=== PATIENT | female | born 1990 | race Caucasian/White ===

== ENCOUNTER 2017-01-13 09:00 | Emergency (ER) | payer MEDICAID ==
[~2017-01-13] VITALS: Ht 157.5 cm; Wt 52.5 kg
[2017-01-13 09:04] VITALS: Ht 157.5 cm; Wt 52.5 kg
[2017-01-13] MEDS ORDERED: ONDANSETRON (ODT) 4 MG TAB ODT STA (09:22)
[2017-01-13 09:49] LABS: ADD UMIC YES; UR ASCORBIC ACID 40 mg/dL (NEGATIVE); UR BACTERIA FEW /HPF (NONE SEEN); UR BILIRUBIN (Dip) NEGATIVE (NEGATIVE); UR BLOOD (Dip) NEGATIVE (NEGATIVE); UR CLARITY SLIGHTLY CLOUDY (CLEAR); UR COLOR YELLOW (YELLOW); UR GLUCOSE (Dip) NEGATIVE (NEGATIVE); UR KETONES (Dip) NEGATIVE (NEGATIVE); UR LEUKOCYTE ESTERASE (Dip) 1+ Leu/ul (NEGATIVE); UR MUCUS FEW /HPF (NONE SEEN); UR NITRITE (Dip) NEGATIVE (NEGATIVE); UR RBC 2 /HPF (0-5); UR SQUAMOUS EPITHELIAL CELL MODERATE /HPF (FEW); UR TOTAL PROTEIN (Dip) NEGATIVE (NEGATIVE); UR UROBILINOGEN (Dip) NEGATIVE (NEGATIVE)
[2017-01-13] MEDS ORDERED: PHEN-538 PO (09:52)
[2017-01-13] MEDS ORDERED: NITR-58 PO (09:52)
[2017-01-13] MEDS ORDERED: IBUP-1542 PO (09:54)
--- NOTE | 2017-01-13 10:28 | RADRPT ---
PROCEDURE: US upper extremity Venous. CLINICAL INDICATION: Left arm pain TECHNIQUE: Multiple sonographic images of the left upper extremity venous system was obtained util izing grayscale, color-flow, compressive sonography and doppler imaging with augmentation. The imag es were reviewed on a PACS workstation. COMPARISON: None. FINDINGS: There is normal compressibility and flow within the left internal jugular vein, subclavian vein, axi llary vein, brachial, basilic, cephalic, radial and ulnar veins. RPTAT: AA IMPRESSION: No sonographic evidence for venous thrombosis. .Michoacano Britton MD, Date Time Electronically viewed and signed by .Michoacano rBitton MD, on 01/13/2017 10:28 .S/
--- NOTE | 2017-01-13 11:25 | ERD ---
ER Documentation Chief Complaint Date/Time DATE: 01/13/17 TIME: 11:23 Chief Complaint N/V and left ear pain x 3 days HPI This is a 26-year-old female presenting to the emergency department with multiple complaints. Patient complains of nausea with one episode of vomiting since last night. She denies any abdominal pain, dysuria, diarrhea, constipation. Patient second complaint is that her left ear has been hurting for the past 3 days. She rates it mild in severity. She denies any fevers. Denies sore throat, cough. Patient states that her left eye has been irritated and red for the past 3 years she has never been evaluated by the physician. She denies any vision changes. ROS All systems reviewed and are negative except as per history of present illness. Medications Home Meds Active Scripts Ibuprofen* (Ibuprofen*) 600 Mg Tablet, 600 MG PO Q6H, #30 TAB Prov:HERMANN SARABIA PA-C 01/13/17 Phenazopyridine Hcl* (Pyridium*) 200 Mg Tab, 200 MG PO TID Y for URINARY PAIN, # 6 TAB Prov:HERMANN SARABIA PA-C 01/13/17 Nitrofurantoin Monohyd Macrocr* (Macrobid*) 100 Mg Capsr, 100 MG PO BID for 7 Days, CAP Prov:HERMANN SARABIA PA-C 01/13/17 Allergies Allergies: Coded Allergies: No Known Allergy (Unverified , 01/13/17) PMhx/Soc History of Surgery: Yes (APPENDECTOMY, HERNIA REPAIR) Anesthesia Reaction: No Hx Neurological Disorder: No Hx Respiratory Disorders: No Hx Cardiac Disorders: No Hx Psychiatric Problems: No Hx Miscellaneous Medical Probl: No Hx Alcohol Use: Yes Hx Substance Use: No Hx Tobacco Use: No Physical Exam Vitals Vital Signs Date Time Temp Pulse Resp B/P Pulse Ox O2 Delivery O2 Flow Rate FiO2 01/13/17 09:04 98.7 78 16 119/79 100 Physical Exam GENERAL: well-developed/well-nourished, in no apparent distress, non-toxic appearing HENT: NC/AT, moist mucous membranes EYES: Left eye pterygium NECK: Supple, no lymphadenopathy PULM: CTA bilaterally, no rales, rhonchi, or wheezing heard CV: Normal S1S2, RRR, good capillary refill GI: Soft, non-distended, nontender Normal bowel sounds, no masses or organomegaly felt on exam No gross peritonitis, no bruits Negative Rovsing, negative Mcmullen, negative McBurney's point, Negative CVAT BACK: No masses EXT: No clubbing, cyanosis, or edema NEURO: Alert and Orientated SKIN: Intact, normal turgor PSYCH: Normal mood and mentation Results 24 hrs Laboratory Tests Test 01/13/17 09:27 Urine Color YELLOW Urine Clarity SLIGHTLY CLOUDY Urine pH 5.0 Urine Specific [place] 1.030 Urine Ketones NEGATIVEmg/dL Urine Nitrite NEGATIVEmg/dL Urine Bilirubin NEGATIVEmg/dL Urine Urobilinogen NEGATIVEmg/dL Urine Leukocyte Esterase 1+Aliya/ul Urine Microscopic RBC 2/HPF Urine Microscopic WBC 7/HPF Urine Squamous Epithelial Cells MODERATE/HPF Urine Bacteria FEW/HPF Urine Mucus FEW/HPF Urine Hemoglobin NEGATIVEmg/dL Urine Glucose NEGATIVEmg/dL Urine Total Protein NEGATIVEmg/dl Current Medications Medications (Trade) Dose Ordered Sig/Chang Route PRN Reason Start Time Stop Time Status Last Admin Dose Admin Ondansetron HCl (Zofran Odt) 4 mg ONCE STAT ODT 01/13/17 09:22 01/13/17 09:25 DC 01/13/17 09:28 Procedures/MDM This is a 26-year-old female with multiple complaints. Patient complains of left eye irritation the past 3 years which is most consistent with pterygium through examination. She complains of nausea with one episode of vomiting which is likely due to her a urinary tract infection or urinalysis. She did not have any evidence of abdominal pain, pyelonephritis or nephrolithiasis. Urine test was negative. Patient also complains of left ear pain, on examination there was no evidence of otitis media, otitis externa, mastoiditis or cerumen impaction. No evidence of ruptured TM. Patient is stable to be discharged home to follow-up with primary care physician. I have discussed with her to return to the ER for any worsening symptoms. Prescription for ibuprofen, Macrobid and Pyridium was given. She understands and agrees with this plan Departure Diagnosis: Primary Impression: UTI (urinary tract infection) Additional Impressions: Pterygium Left arm pain Condition: Stable Patient Instructions: Understanding Urinary Tract Infections (UTIs), Pterygium [facility]: [facility] Usolga avilaho un examen mdico de control que le indica que no est en abel condicin que requiera tratamiento urgente en el Departamento de Emergencia. Un estudio ms profundo y el tratamiento de farris condicin pueden esperar sin ningn riesgo hasta que usted sea atendida/o en el consultorio de farris mdico o abel cl baldo. Es responsabilidad suya arreglar abel sana para el seguimiento del paul. MANEJO DE CONDICIONES NO URGENTES EN EL FUTURO 1) Si usted tiene un mdico de atencin primaria: Usted debera llamar a farris mdico de atencin primaria antes de venir al departamento de emergencia. Despus de las horas de consultorio, farris doctor o farris asociado/a est disponible por telfono. El mdico o enfermero de bart en el servicio telefnico puede asesorarle por evelina medio para atender el problema, o paul contrario se puede programar abel sana. 2) Si usted no tiene un mdico de atencin primaria: Llame al mdico o clnica de referencia que aparece abajo kai las horas de consultorio para hacer abel sana para que le vean. CLINICAS: [facility] [phone] [facility] [phone] [facility] [phone] [facility]. [facility] [phone] [facility]. [place] [id number] [phone] [facility]. [phone] [address] [facility] [address] [facility] Hours: Mon - Fri 9:00 AM - 5:00 PM Additional Instructions: Visite a farris mdico maana para un EXAMEN.Regrese a estas instalaciones si no se mejora rico esperbamos o rico le dijimos. [place] toda la medicina le y rico se le indic. Regrese a estas instalaciones si no se mejora rico esperbamos o rico le dijimos. HERMANN SARABIA PA-C Jan 13, 2017 11:25
== END 2017-01-13 11:09 | disposition home or self-care (01) ==
LOC: FTE 09:00
DX: N39.0 Urinary tract infection, site not specified (principal); H11.002 Unspecified pterygium of left eye; M79.602 Pain in left arm
CPT/HCPCS: 81001; 93971; Z7502; Z7610

== ENCOUNTER 2018-01-02 19:06 | Emergency (ER) | END 2018-01-02 22:34 | disposition home or self-care (01) ==

== ENCOUNTER 2018-10-30 22:25 | Inpatient (IN) | payer MEDICAID ==
[~2018-10-30] VITALS: Ht 170.2 cm; Wt 66.8 kg
[~2018-10-30 22:25] MED LIST: CEPH-443 PO; IBUP-1542 PO; NITR-58 PO; PHEN-538 PO
[2018-10-30] MEDS ORDERED: METHYLERGONOVINE 0.2 MG INJ IM PRN (22:30)
[2018-10-30] MEDS ORDERED: OXYTOCIN 30 UNITS/LR 500 ML IV SCH ×2 (22:30)
[2018-10-30] MEDS ORDERED: LIDOCAINE 1% (MPF) 30 ML INJ INJ PRN (22:30)
[2018-10-30] MEDS ORDERED: MINERAL OIL LIGHT 10 ML VIAL TOP PRN (22:30)
[2018-10-30] MEDS ORDERED: IBUPROFEN 600 MG TAB PO PRN (22:30)
[2018-10-30] MEDS ORDERED: BUTORPHANOL 2 MG INJ IV PRN (22:30)
[2018-10-30] MEDS ORDERED: OXYTOCIN 30 UNITS/LR 500 ML IV PRN (22:30)
[2018-10-30] MEDS ORDERED: CARBOPROST 250 MCG INJ IM PRN (22:30)
[2018-10-30] MEDS ORDERED: MISOPROSTOL 200 MCG TAB PR PRN (22:30)
[2018-10-30 22:33] VITALS: Ht 170.2 cm; Wt 66.8 kg
[2018-10-30] MEDS: LACTATED RINGER'S 1,000 ML IV SCH ×2 (23:02→23:53)
[2018-10-31] VITALS (7 sets, daily range): BP systolic 97–139; BP diastolic 62–87; PULSE 57–83; RESP 17–18
--- NOTE | 2018-10-31 00:58 | LDN ---
Date/Time of Note Date/Time of Note DATE: 10/31/18 TIME: 00:56 Delivery Summary of normal male Weeks of Gestation 40w Placenta Delivered: Spontaneously, Intact & Complete Meconium: none Episiotomy: No Perineal laceration: 0 Anesthesia type: None Estimated blood loss: 200 Sponge & Needle done & correct: Yes All needle counts correct: Yes Any foreign bodies felt in the: No Delivery Information Sex Infant Sex: male Apgars 1 Minute: 8 5 Minute: 9 Suctioning Nose & mouth suctioned at nataliia: Yes Delee suction performed: Yes Umbilical Cord Umbilical cord with: 3 Vessels Cord presentations: no nuchal cord Cord Blood was obtained: Yes Mother & Baby Disposition Disposition Mom & Baby to Maternity; Good: Yes Mom transferred to: Other Baby to NICU: No () SHANTELLE QUIROGA MD October 31, 2018 00:58
--- NOTE | 2018-10-31 01:30 | HP ---
Date/Time of Note Date/Time of Note DATE: 10/31/18 TIME: 01:25 OB - History Hx of Present Free Text/Dictation 27y.o at 40w2d in active labor with intact membrane. Initial VE /-2 with UC's q2-3min apart EFM CAT I tracing Her initial visit was at 8weeks , no apparent problem during course. GBS status neg admitted for expectant management. Chief Complaint: UC's Estimated Due Date: October 29, 2018 : 2 Para: 1 Spontaneous : 0 Therapeutic : 0 Care: Good Care Ultrasounds: Normal mid trimester US Obstetrical Complications: None Medical Complications: None Past Family/Social History * Past Medical, Surgical, Family and Obstetric Histories reviewed from chart. Blood Type: O+ Rubella: immune RPR/VDRL: Negative GBS Status: Negative HBsAG: Negative OB Admission Exam Vital Signs Vital Signs Vital Signs Date Temp Pulse Resp B/P (MAP) Pulse Ox O2 O2 Flow FiO2 Time Delivery Rate 10/31/18 99.3 83 18 139/85 Room Air 01:13 (103) Physical Exam HEENT: WNL Heart: Rhythm Normal Lungs: Clear, Equal Abdomen: WNL Extremities: Normal Reflexes: Normal Cervical Dilatation: 4cm Effacement: Other (80%) Station: -2 Membranes: Intact Amniotic Fluid: Unevaluable Heart Rate: 130's Accelerations: Accelerations Present Decelerations: No Decelerations Varibility: Moderate Contractions on Admission: < 5 Minutes Apart Intensity: Moderate Last 72 hours Lab Results CBC & BMP 10/30/18 22:38 OB Assessment/Plan Reason for admission: active labor Other Assessment: IUP 40w2d Plan: Expectant Management SHANTELLE QUIROGA MD October 31, 2018 01:30
[2018-10-31] MEDS ORDERED: OXYCODONE/ASPIRIN (4.88/325) TAB PO PRN ×2 (02:00)
[2018-10-31] MEDS ORDERED: MISOPROSTOL 200 MCG TAB PR PRN (02:00)
[2018-10-31] MEDS ORDERED: METHYLERGONOVINE 0.2 MG INJ IM PRN (02:00)
[2018-10-31] MEDS ORDERED: BENZOCAINE 20% 56 ML SPRAY TOP PRN (02:00)
[2018-10-31] MEDS ORDERED: WITCH HAZEL/GLYCERIN PAD PR PRN (02:00)
[2018-10-31] MEDS ORDERED: ZOLPIDEM 5 MG TAB PO PRN (02:00)
[2018-10-31] MEDS ORDERED: OXYTOCIN 30 UNITS/LR 500 ML IV PRN (02:00)
[2018-10-31] MEDS ORDERED: CARBOPROST 250 MCG INJ IM PRN (02:00)
[2018-10-31] MEDS: IBUPROFEN 600 MG TAB PO SCH ×4 (05:50→23:16)
--- NOTE | 2018-10-31 05:50 | TRIAGE ---
OB Triage Datetime Report Generated by CPN: 10/31/2018 05:50 Datetime: 10/31/2018 01:31 Stage of : Recovery Pain Assessment Pain Scale: 0 Pain Presence: None/Denies Pain Type: N/A Pain Relief Measures: Comfort Measures Datetime: 10/31/2018 01:16 Stage of : Recovery Pain Assessment Pain Scale: 0 Pain Presence: None/Denies Pain Type: N/A Pain Relief Measures: Comfort Measures Datetime: 10/31/2018 01:01 Stage of : Recovery Pain Assessment Pain Scale: 0 Pain Presence: None/Denies Pain Type: N/A Pain Relief Measures: Comfort Measures Datetime: 10/31/2018 00:46 Stage of : Recovery Pain Assessment Pain Scale: 3 Pain Presence: Intermittent Pain Type: Contraction; Ache Pain Location: Abdomen; Perineum Pain Relief Measures: Pain Medication Given; Comfort Measures Datetime: 10/31/2018 00:31 Stage of : Recovery Temperature Route: Axillary Pain Assessment Pain Scale: 7 Pain Presence: Intermittent Pain Type: Contraction; Ache Pain Location: Abdomen; Perineum Pain Relief Measures: Comfort Measures Datetime: 10/31/2018 00:20 Stage of : Labor Labor Evaluation Frequency: 2-3 Monitor Mode: External Duration (sec)2399: 50-60 Pattern: Normal: <= 5 Contractions in 10 Minutes Resting Tone Morning Sun: Relaxed Heart Rate FHR Baseline Rate: 130 Monitor Mode: External US Variability: Moderate 6-25 bpm Accelerations: 15X15 Decelerations: None Category: Category I Pain Assessment Pain Scale: 10 Pain Presence: Intermittent Pain Type: Contraction; Pressure Pain Location: Abdomen; Back; Perineum Pain Relief Measures: Comfort Measures Datetime: 10/31/2018 00:17 Vaginal Exam Dilatation (cms): 10.0 Effacement (%): 100 Membranes Rupture Method: Artificial Amniotic Fluid Amount: Moderate Datetime: 10/31/2018 00:12 Stage of : Labor Datetime: 10/31/2018 00:04 Vaginal Exam Dilatation (cms): 9.5 Effacement (%): 100 Station: -1 Exam By: GKashman, RN Membrane Status: Bulging Datetime: 10/30/2018 23:50 Stage of : Labor Labor Evaluation Frequency: 2-3 Monitor Mode: External Duration (sec)2399: 60-80 Pattern: Normal: <= 5 Contractions in 10 Minutes Resting Tone Morning Sun: Relaxed Heart Rate FHR Baseline Rate: 130 Monitor Mode: External US Variability: Moderate 6-25 bpm Accelerations: 15X15 Decelerations: Early; Late Category: Category II Pain Assessment Pain Scale: 10 Pain Presence: Intermittent Pain Type: Contraction Pain Location: Abdomen; Back; Perineum Pain Relief Measures: Comfort Measures Datetime: 10/30/2018 23:49 Pain Assessment Pain Scale: 10 Pain Presence: Intermittent Pain Type: Contraction; Pressure Pain Location: Abdomen; Back; Perineum Pain Relief Measures: Comfort Measures Vaginal Exam Dilatation (cms): 8.5 Effacement (%): 100 Station: -1 Exam By: [facility], RN Datetime: 10/30/2018 23:17 Stage of : Labor Labor Evaluation Frequency: 1.5-2.5 Monitor Mode: External Duration (sec)2399: 60-80 Pattern: Normal: <= 5 Contractions in 10 Minutes Resting Tone Morning Sun: Relaxed Heart Rate FHR Baseline Rate: 130 Monitor Mode: External US Variability: Moderate 6-25 bpm Accelerations: 15X15 Decelerations: None Category: Category I Pain Assessment Pain Scale: 8 Pain Presence: Intermittent Pain Type: Contraction Pain Location: Abdomen; Back; Perineum Pain Relief Measures: Comfort Measures Datetime: 10/30/2018 23:16 Time of Arrival: 10/30/2018 22:55 EGA: 40.1 Arrived By: Stretcher Arrived From: Home Datetime: 10/30/2018 23:15 Assessment Type: Admission Assessment Maternal Assessment Level of Consciousness: Fully Conscious DTR's/Clonus: DTRs 2+; No Clonus Headache: Denies Blurred Vision: No Respiratory Effort: Unlabored; Regular Rhythm; Equal Expansion Breath Sounds, Left: Clear and Equal Breath Sounds, Right: Clear and Equal Nausea/Vomiting: Denies RUQ Epigastric Pain: Denies Lower Extremities Edema: None Degree: None Upper Extremities Edema: None Degree: None Facial Edema: None Fall Risk Assessment History of Falling: (0) No Secondary Diagnosis: (0) No Ambulatory Aid: (0) Bedrest/Nurse Assist IV Therapy: (20) Yes Gait: (0) Normal/Bedrest/Immobile Mental Status: (0) Oriented to Own Ability Fall Score: 20 Fall Risk Score Definition: No Risk: No action required Datetime: 10/30/2018 23:08 Stage of : Labor Vaginal Exam Dilatation (cms): 6.0 Effacement (%): 100 Station: -1 Exam By: JAGJIT RN Datetime: 10/30/2018 22:27 Vaginal Exam Dilatation (cms): 4.0 Effacement (%): 80 Station: -2 Membrane Status: Intact Datetime: 10/30/2018 22:10 Stage of : OB Triage Maternal Assessment Level of Consciousness: Fully Conscious DTR's/Clonus: DTRs 2+; No Clonus Headache: Denies Blurred Vision: No Respiratory Effort: Unlabored; Regular Rhythm; Equal Expansion Breath Sounds, Left: Clear and Equal Breath Sounds, Right: Clear and Equal Nausea/Vomiting: Denies RUQ Epigastric Pain: Denies Lower Extremities Edema: None Degree: None Upper Extremities Edema: None Degree: None Facial Edema: None Temperature Route: Oral Fall Risk Assessment History of Falling: (0) No Secondary Diagnosis: (0) No Ambulatory Aid: (0) Bedrest/Nurse Assist IV Therapy: (0) No Gait: (0) Normal/Bedrest/Immobile Mental Status: (0) Oriented to Own Ability Fall Score: 0 Fall Risk Score Definition: No Risk: No action required Pain Assessment Pain Scale: 7 Pain Presence: Intermittent Pain Type: Contraction Pain Location: Abdomen Datetime: 10/30/2018 22:09 Time of Arrival: 10/31/2018 22:09 EGA: 40.2 Arrived By: Wheelchair Arrived From: Home Chief Complaint: CONTRACTIONS Movement: Present Contractions: Regular Time Contractions Began: 10/30/2018 17:00 Contractions: 2-3.4 Rupture of Membranes: Denies Vaginal Bleeding: Normal Show Vaginal Discharge: Denies Recent Sexual Intercouse: Denies Abdominal Trauma: Not Applicable Patient Complaints: Contractions Time Provider Notified: 10/30/2018 22:25 Provider Notified: DR. PINTO Initial Plan: EFM, SVE, CALL OB Datetime: 09/29/2018 13:35 Membranes Ruptured Date/Time: 10/31/2018 00:17 Amniotic Fluid Color: Clear Amniotic Fluid Odor: None Presentation 'A': Cephalic
[2018-10-31] MEDS: SENNA/DOCUSATE NA (8.6MG/50MG) TAB PO SCH ×2 (09:18→21:30)
[2018-11-01 04:00] VITALS: BP 115/75; PULSE 67; RESP 17
[2018-11-01] MEDS: IBUPROFEN 600 MG TAB PO SCH ×3 (05:13→17:51)
[2018-11-01 07:40] VITALS: BP 112/69; PULSE 77; RESP 17
[2018-11-01] MEDS: LANOLIN HPA 1 PKT TOP PRN ×2 (08:59→18:18)
[2018-11-01] MEDS: SENNA/DOCUSATE NA (8.6MG/50MG) TAB PO SCH (08:59)
[2018-11-01 15:30] VITALS: BP 113/73; PULSE 95; RESP 18
--- NOTE | 2018-11-01 16:52 | DS ---
Date/Time of Note Date/Time of Note Home today or next day DATE: 11/01/18 TIME: 16:51 Obstetrical Discharge Record Final Diagnosis Final Diagnosis: Term delivered Other Final Diagnosis Status post vaginal delivery Vaginal Delivery Obstetrical Delivery: Spontaneous Condition on Discharge Physical Assessment Last Vitals: See nurse's notes Voiding: Yes Bowel Movement: Yes Breast: Soft, non-tender, Filling Fundus: Firm Abdomen and Incision: Abdomen is soft with firm fundus Episiotomy: Perineum is clean Calf Tenderness: No Patient Condition: Good NOHEMI LAWSON MD November 01, 2018 16:52
--- NOTE | 2018-11-01 16:53 | PD.PPDC ---
ASSOCIATE TECHNICIAN Discharge Instruction Provider Information Physician Information 28-year-old female had vaginal delivery Diagnosis [id number] Final Diagnosis: Tcmbs4f Status post vaginal delivery Condition [id number] Patient Condition: Hezpq2n Good Diet Pclab7Er Diet: Zftfd6j Resume Regular Diet Activity/Restrictions Swrqm7Np Activity: Ymnns6c Normal Activity May Shower Ululk2Nk Restrictions: Njmcx5k Nothing in the Vagina [id number] Return to Work or School: [id number] Dec 19, 2018 Follow-up Follow-up with Physician: 2, 4, Week/Weeks (In clinic) Return to clinic for [id number] OB Instructions: Jqkoc8a Breast Tenderness Depression Comment: Pelvic rest for 6 weeks NOHEMI LAWSON MD November 01, 2018 16:53
[2018-11-01] MEDS ORDERED: IBUP-1542 PO (16:54)
[2018-11-02] MEDS ORDERED: DIPHTH/TET/ACEL PERTUSS (ADULT) 0.5 ML VIAL IM* ONE (09:00)
--- NOTE | 2018-11-02 19:37 | DELSUM ---
Delivery Summary A-C Datetime Report Generated by CPN: 11/02/2018 19:37 DELIVERY PERSONNEL Graphics Artist: Kashman, Peggy MATERNAL INFORMATION Delivery Anesthesia: None Medications in Delivery: Pitocin 30 units in LR Delivery QBL (ml): 226 Placenta Cultured: No Maternal Complications: None LABOR SUMMARY EDC: 10/29/2018 00:00 No. Babies in Womb: 1 Attempted: No Labor Anesthesia: None LABOR INFORMATION Reason for Induction: Not Applicable Onset of Labor: 10/30/2018 16:00 Complete Dilatation: 10/31/2018 00:17 Oxytocin: N/A Group B Beta Strep: Negative Antibiotics # of Doses: 0 Steroids Given: None Reason Steroids Not Administered: Not Applicable MEMBRANES Membranes Rupture Method: Artificial Rupture of Membranes: 10/31/2018 00:17 Length of Rupture (hr): 0.05 Amniotic Fluid Color: Clear Amniotic Fluid Amount: Moderate Amniotic Fluid Odor: None STAGES OF LABOR Stage 1 hr: 8 Stage 1 min: 17 Stage 2 hr: 0 Stage 2 min: 3 Stage 3 hr: 0 Stage 3 min: -3 Total Time in Labor hr: 8 Total Time in Labor min: 17 VAGINAL DELIVERY Episiotomy: None Laceration Extension: N/A Laceration Type: None Laceration Repair: No Initial Vag Sponge Count: 10 Final Vag Sponge Count: 10 Initial Vag Sharps Count: 1 Final Vag Sharps Count: 1 Sponge Count Correct: Yes Sharps Count Correct: Yes BABY A INFORMATION Delivery Date/Time: 10/31/2018 00:20 Method of Delivery: Vaginal Born in Route : No : N/A Forceps: N/A Vacuum Extraction: N/A Shoulder Dystocia : No SHOULDER DYSTOCIA BABY A Delivery Date/Time: 10/31/2018 00:20 PRESENTATION/POSITION BABY A Presentation: Cephalic Cephalic Presentation: Vertex Breech Presentation: N/A PLACENTA INFORMATION BABY A Placenta Delivery Time : 10/31/2018 00:17 Placenta Method of Delivery: Expressed Placenta Status: Delivered SCORES BABY A Heart Rate 1 min: >100 bpm Resp Effort 1 min: Good Cry Reflex Irritability 1 min: Cough/Sneeze/Pulls Away Muscle Tone 1 min: Active Motion Color 1 min: Body [place], Extremit Blue Resuscitation Effort 1 min: Tactile Stimulation SCORE 1 MIN: 9 Heart Rate 5 min: >100 bpm Resp Effort 5 min: Good Cry Reflex Irritability 5 min: Cough/Sneeze/Pulls Away Muscle Tone 5 min: Active Motion Color 5 min: Body [place], Extremit Blue Resuscitation Effort 5 min: Tactile Stimulation SCORE 5 MIN: 9 INFORMATION BABY A Gestational Age at Delivery: 40.2 Gestational Status: Full Term- 39- 40.6 Weeks Infant Outcome : Liveborn Condition : Stable Sex: Male IDENTIFICATION/MEDS BABY A ID Band Number: [id number] ID Band Location: Right Leg; Left Arm Sensor Applied: Yes Sensor Number: [id number] Sensor Location : Cord Clamp Vitamin K Given : Not Given Erythromycin Given: Not Given WEIGHT/LENGTH BABY A Birthweight (gm): 3225 Weight (lb): 7 Weight (oz): 2 Length (in): 19.00 Infant Length (cm): 48.26 CORD INFORMATION BABY A No. Cord Vessels: 3 Nuchal Cord : N/A Cord Blood Taken: Yes Suction: Mouth; Nose ASSESSMENT BABY A Infant Complications: None Physical Findings at Delivery: Within Normal Limits Respirations: Appears Normal Plastic Surgery Coordinator/ALS Called : No Care By: RYANN Mclean Transferred To: Remains with Mother
== END 2018-11-01 19:25 | disposition home or self-care (01) | DRG 807 ==
LOC: OBT 22:25 → L-D 22:26 → OBT 22:30 → L-D 22:30 → PP1 10-31 02:00
PROVIDERS: ADMIT Obstetrics & Gynecology; ATTEND Obstetrics & Gynecology
PROC: 10E0XZZ Delivery of Products of Conception, External Approach (ICD-10-PCS; principal; 2018-10-31)
DX: O48.0 Post-term pregnancy (principal); Z37.0 Single live birth; Z3A.40 40 weeks gestation of pregnancy
CPT/HCPCS: 85025; 85610; 85730; 86592; 86850; 86900; 86901; 87340; G0463; J2590; J7120